=== PATIENT | male | born 1935 ===

== ENCOUNTER 2017-05-14 09:46 | Inpatient (IN) | payer MEDICARE ==
[2017-05-14] MEDS ORDERED: Midazolam 2 MG/2 ML VIAL ONE ×3 (10:27→14:05)
[2017-05-14] MEDS ORDERED: ePHEDrine 50 mg/ml Inj ONE (10:27)
[2017-05-14 10:51] LABS: BASO # 0.1 K/uL (0.0-0.2); BASO % 1.1 % (0.0-2.0); EOS # 0.6 K/uL (0.0-0.7); EOS % 12.9 % (0.0-4.0); HEMOGLOBIN 15.7 g/dL (12.0-18.0); LYMPH # 1.2 K/uL (1.0-4.3); LYMPH % 24.5 % (20.0-40.0); MEAN CELL VOLUME 96.4 fL (80.0-94.0); MEAN CORPUSCULAR HEMOGLOBIN 33.6 pg (27.0-31.0); MEAN CORPUSCULAR HGB CONC 34.9 g/dL (33.0-37.0); MEAN PLATELET VOLUME 8.4 fL (7.2-11.7); MONO # 0.3 K/uL (0.0-0.8); MONO % 6.7 % (0.0-10.0); NEUT # 2.6 K/uL (1.8-7.0); NEUT % 54.8 % (50.0-75.0); NRBC % 0.1 % (0.0-2.0); RBC 4.68 Mil/uL (4.40-5.90); RED CELL DISTRIBUTION WIDTH 13.6 % (11.5-14.5); WHITE BLOOD COUNT 4.8 K/uL (4.8-10.8)
[2017-05-14 10:54] LABS: BLOOD UREA NITROGEN 12 mg/dL (9-20); CALCIUM 9.1 mg/dl (8.6-10.4); GFR AFRICAN-AMERICAN > 60; GFR NON-AFRICAN AMERICAN > 60
[2017-05-14] MEDS ORDERED: Lidocaine 1% w Epi 1:100,000 Inj ONE (11:10)
[2017-05-14 11:11] LABS: INR 1.1; PROTHROMBIN TIME 12.3 SECONDS (9.7-12.2)
[2017-05-14] MEDS ORDERED: Iodixanol 320 MG/ML 100 ML BOTTLE IV ONE (12:59)
--- NOTE | 2017-05-14 14:36 | PCM.SURG1 ---
Surgeon's Initial Post Op Note - Surgeon's Notes Surgeon: shirley Spinner Cap Frame: 0 Type of Anesthesia: IV Sedation Anesthesia Administered By: michael Pre-Operative Diagnosis: rest pain right foot Operative Findings: occluded politeal artery on right with only peroneal runoff to foot. unable to visualize pedal vessels Post-Operative Diagnosis: same Operation Performed: aortofemoral angiogram. selective catherization of right femoral arery. balloon angioplasty and stent of distal sfa / popliteal. balloon angioplasty and stent(7mm) proximal sfa. balloon angioplasty (2mm) mid peroneal artery. perclose left groin Specimen/Specimens Removed: 0 Estimated Blood Loss: EBL {In ML}: 100 Blood Products Given: N/A Drains Used: No Drains Post-Op Condition: Good Date of Surgery/Procedure: 05/14/17 Time of Surgery/Procedure: 14:36
[2017-05-14] MEDS: Dextrose 5%/0.45% NS 1,000 ML IV SCH (15:14)
--- NOTE | 2017-05-14 18:44 | CP.PCM.CON ---
History of Present Illness - History of Present Illness History of Present Illness: Chief complaint: Peripheral vascular intervention Medical consultation History of present illness: 81-year-old male with a history of hypertension, history of COPD and ex-smoker admitted to the hospital with a severe peripherovascular disease. Patient today underwent aortofemoral angiogram, balloon angioplasty and stenting of the distal SFA and popliteal angioplasty of mid peroneal artery. Patient postoperatively in the [employer]. Patient is comfortable, he has no pain. Some discomfort in the urinary region noted, patient has a Dooley catheter. Minimal pain in the legs noted. Dopplerable pulse on both sides noted Past medical history: Hypertension possibly high cholesterol, COPD Allergies: No known drug allergic Personal history used to be a smoker heavily in the past. Does not have any drug history. Currently living with her family Surgical history includes a history of colectomy in the past for colon cancer. Bilateral hernia repair. Review of system: Denies any headache, no visual symptoms. Denies any chest pain or shortness of breath. Some pain in the legs noted, groin pain noted, but better. Difficulty in urination, right now having Dooley catheter On examination: Vital signs Pulse 82 blood pressure 150/90. Saturation is 98 Chest good air entry bilaterally Regular heart sound, nontender abdomen. Extremities no pedal edema Dopplerable pulses noted The access site in the left groin stable. Recent chest x-ray a few months ago showing no evidence of any acute infiltrate Assessment and recommendation: 81 male with history of hypertension COPD ex-smoker admitted with the peripherovascular disease. Patient underwent intervention including balloon angioplasty and stenting in the right SFA and the peroneal. Patient is currently stable. Accu-Chek monitoring labs ordered x-ray. Patient has a Dooley catheter, presumably tomorrow, Flomax and will follow the patient. Possibly patient has BPH. Past Patient History - Infectious Disease Hx of Infectious Diseases: None - Past Medical History & Family History Past Medical History?: Yes - Past Social History Smoking Status: Former Smoker - CARDIAC Hx Cardiac Disorders: Yes Hx Peripheral Vascular Disease: Yes - PULMONARY Hx Respiratory Disorders: No - NEUROLOGICAL Hx Neurological Disorder: No - HEENT Hx HEENT Problems: No - RENAL Hx Chronic Kidney Disease: No - ENDOCRINE/METABOLIC Hx Endocrine Disorders: No - HEMATOLOGICAL/ONCOLOGICAL Hx Blood Disorders: Yes Hx Anemia: Yes Hx Blood Transfusions: Yes Hx Blood Transfusion Reaction: No Hx Cancer: Yes (COLON) Hx Chemotherapy: Yes - INTEGUMENTARY Hx Dermatological Problems: No - MUSCULOSKELETAL/RHEUMATOLOGICAL Hx Musculoskeletal Disorders: Yes Hx Arthritis: Yes (GENERALIZED) Hx Falls: No Other/Comment: HX: BILATERAL INGUINAL HERNIA - GASTROINTESTINAL Hx Gastrointestinal Disorders: Yes Hx Bowel Surgery: Yes (COLON RESECTION) Other/Comment: HX: COLON CANCER - GENITOURINARY/GYNECOLOGICAL Hx Genitourinary Disorders: No - PSYCHIATRIC Hx Psychophysiologic Disorder: No Hx Substance Use: No - SURGICAL HISTORY Hx Surgeries: Yes Hx Herniorrhaphy: Yes (BILATERAL INGUINAL HERNIA REPAIR) Other/Comment: colon CA 30 years ago. - ANESTHESIA Hx Anesthesia: Yes Hx Anesthesia Reactions: No Hx Malignant Hyperthermia: No Meds Allergies/Adverse Reactions: Allergies Allergy/AdvReac Type Severity Reaction Status Date / Time No Known Allergies Allergy Verified 03/31/15 14:11 - Medications Medications: Current Medications Clopidogrel Bisulfate (Plavix) 75 mg PO DAILY [facility] Dextrose/Sodium Chloride (Dextrose 5%/0.45% Ns 1000 Ml) 1,000 mls @ 100 mls/hr IV .Q10H [facility] Last Admin: 05/14/17 15:14 Dose: 100 mls/hr Oxycodone/Acetaminophen (Percocet 5/325 Mg Tab) 1 tab PO Q4H PRN PRN Reason: Pain, moderate (4-7) Stop: 05/17/17 14:43 Tamsulosin HCl (Flomax) 0.4 mg PO Q12 [facility] Results - Labs Result Diagrams: 05/14/17 10:36 05/14/17 10:36 Labs: Laboratory Results - last 24 hr 05/14/17 05/14/17 05/14/17 10:36 10:36 10:36 WBC 4.8 RBC 4.68 Hgb 15.7 Hct 45.1 MCV 96.4 H D MCH 33.6 H MCHC 34.9 RDW 13.6 Plt Count 203 MPV 8.4 Neut % (Auto) 54.8 Lymph % (Auto) 24.5 [place] % (Auto) 6.7 Eos % (Auto) 12.9 H Baso % (Auto) 1.1 Neut # 2.6 Lymph # 1.2 [place] # 0.3 Eos # 0.6 Baso # 0.1 PT 12.3 H INR 1.1 APTT 34 Sodium 137 Potassium 4.0 Chloride 99 Carbon Dioxide 30 Anion Gap 11 BUN 12 Creatinine 0.8 Est GFR ( Amer) > 60 Est GFR (Non-Af Amer) > 60 Random Glucose 108 Calcium 9.1
[2017-05-14] MEDS ORDERED: Oxycodone/Acetaminophen 5/325 mg Tab ONE (18:59)
[2017-05-14] MEDS: Oxycodone/Acetaminophen 5/325 mg Tab PO PRN (19:00)
--- NOTE | 2017-05-14 20:51 | CARD ---
APPROVED REPORT EKG Measurement Heart [id number] <Conclusion> Normal sinus rhythm Left axis deviation Abnormal ECG
[2017-05-15] MEDS: Dextrose 5%/0.45% NS 1,000 ML IV SCH ×2 (00:32→10:53)
[2017-05-15] MEDS: Oxycodone/Acetaminophen 5/325 mg Tab PO PRN (02:40)
[2017-05-15 06:58] LABS: ALBUMIN 3.3 g/dL (3.5-5.0); ALT/SGPT 19 U/L (21-72); AST/SGOT 20 U/L (17-59); BLOOD UREA NITROGEN 11 mg/dL (9-20); CALCIUM 8.2 mg/dl (8.6-10.4); GFR AFRICAN-AMERICAN > 60; GFR NON-AFRICAN AMERICAN > 60; HDL CHOLESTEROL 38 mg/dL (30-70)
[2017-05-15 07:01] LABS: ALB/GLOB RATIO 1.2 (1.0-2.1)
[2017-05-15 07:09] LABS: LDL CHOLESTEROL 84 mg/dL (0-129)
[2017-05-15] MEDS ORDERED: Magnesium Hydroxide Susp 30 ml UD PO ONE (13:30)
--- NOTE | 2017-05-15 13:33 | CP.PCM.PN ---
Subjective - Date & Time of Evaluation Date of Evaluation: 05/15/17 Time of Evaluation: 13:32 - Subjective Subjective: good popliteal pulse leg hot difficulty putting charissa will hold dc due to discomfort plan dc am physical therapy Objective - Vital Signs/Intake and Output Vital Signs (last 24 hours): Temp Pulse Resp BP Pulse Ox 98.3 F 72 20 125/65 98 05/15/17 08:10 05/15/17 08:10 05/15/17 08:10 05/15/17 08:10 05/15/17 08:10 Intake and Output: 05/15/17 05/15/17 06:59 18:59 Output Total 1350 Balance -1350 - Medications Medications: Current Medications Clopidogrel Bisulfate (Plavix) 75 mg PO DAILY [facility] Last Admin: 05/15/17 10:22 Dose: 75 mg Gabapentin (Neurontin) 100 mg PO BID [facility] Last Admin: 05/15/17 11:41 Dose: 100 mg Dextrose/Sodium Chloride (Dextrose 5%/0.45% Ns 1000 Ml) 1,000 mls @ 100 mls/hr IV .Q10H [facility] Stop: 05/15/17 14:00 Last Admin: 05/15/17 10:53 Dose: 100 mls/hr Magnesium Hydroxide (Milk Of Magnesia) 30 ml PO ONCE ONE Stop: 05/15/17 13:31 Oxycodone/Acetaminophen (Percocet 5/325 Mg Tab) 1 tab PO Q4H PRN PRN Reason: Pain, moderate (4-7) Stop: 05/17/17 14:43 Last Admin: 05/15/17 02:40 Dose: 1 tab Rosuvastatin Calcium (Crestor) 2.5 mg PO HS [facility] Tamsulosin HCl (Flomax) 0.4 mg PO Q12 [facility] Last Admin: 05/15/17 10:22 Dose: 0.4 mg - Labs Labs: 05/14/17 10:36 05/15/17 06:25 PT 12.3 SECONDS (9.7-12.2) H 05/14/17 10:36 INR 1.1 05/14/17 10:36 APTT 34 SECONDS (21-34) 05/14/17 10:36
--- NOTE | 2017-05-15 14:13 | VAS ---
DATE: 05/14/2017 PREOPERATIVE DIAGNOSIS: Rest pain, right foot. PROCEDURE CARRIED OUT: Aortofemoral angiogram via left groin with selective catheterization of right femoral artery and then balloon angioplasty and stent deployment of the right superficial femoral artery, both in the distal and proximal portions, and balloon angioplasty with stent deployment of those vessels and then balloon angioplasty of the peroneal artery. SURGEON: Parish Maguire Jr., MD. PAYABLE MANAGER: None. ANESTHESIOLOGIST: , INTELLIGENCE OFFICER BASIC. INDICATIONS: The patient is an 82-year-old man with rest pain in the right foot. OPERATIVE FINDINGS: The aorta and renal arteries were free of significant occlusive disease. Both external iliac, common iliac, internal iliac arteries, common femoral arteries and the proximal portion of the both superficial femoral arteries were widely patent. On the left side, the superficial femoral artery was widely patent except for some stenosis of approximately 50% in its proximal segment down to the level of the distal popliteal artery. Below this, there appeared to be one vessel runoff to the foot via the peroneal artery. Additional films were not obtained on the left side. On the right side, there was an occlusion of the distal superficial femoral artery, and that a complete occlusion of the popliteal artery was reconstituted just proximal to the takeoff of the anterior tibial and peroneal and posterior tibial which were occluded. The peroneal artery was the major vessel into the left foot. Despite multiple attempts, we were unable to obtain adequate views of the foot vessels. In addition, there was approximately 60% to 70% stenosis of the origin of the superficial femoral artery on the right side. Subsequent to the performance of diagnostic arteriogram, a stiff-angled guidewire was advanced to the aortic bifurcation and a 7-Romanian sheath positioned in the distal portion of superficial femoral artery. Eventually, we then positioned it distally. We went through the proximal area at the origin, and we were then able to, using road mapping techniques, cross this into the peroneal artery. We carried out, using a 2 mm balloon, a balloon angioplasty of the midportion of the peroneal artery and heparin had been given prior to doing this. We then carried out multiple balloon angioplasties. We did not carry out atherectomy because of concern regarding the possibility of a subintimal dissection. Nonetheless, at this point, we then had dissected down here. We ballooned the peroneal artery. We deployed a Supera 5.5 stent from the knee joint back. We then at the very top portion of it, deployed a Zilver stent as it did not adequately cover the proximal area. We then went to the proximal portion of the superficial femoral artery and deployed a 7 x 60 Innova stent. After we had done this, we then obtained final films which showed a residual area of dissection in the midportion of the popliteal artery which required deployment of a 4 mm balloon and then another Innova stent 5 mm in diameter. The final completion pictures were excellent showing no residual stenosis or dissection, brisk flow into the peroneal artery. Procedure was terminated. Perclose was applied in the left groin. Blood loss for procedure was approximately 100 mL. So again operation, aortofemoral angiogram with selective catheterization of right femoral artery, balloon angioplasty and stent deployment of the popliteal artery and also separately of the proximal superficial femoral artery, balloon angioplasty using a 2 mm balloon of the peroneal artery. Parish Maguire Jr., MD cc: Isaiah Arroyo DPM
[2017-05-15] MEDS ORDERED: Rosuvastatin Calcium 2.5 mg Tab PO SCH (22:00)
--- NOTE | 2017-05-15 22:29 | CP.PCM.PN ---
Subjective - Date & Time of Evaluation Date of Evaluation: 05/15/17 Time of Evaluation: 22:28 - Subjective Subjective: Patient is morning doing well. Eating well. His coming of some pain in the legs. Blood sugar is normal. Labs reviewed. Vital signs stable. Chest good and bilaterally regular heart sound nontender abdomen. Pedal edema negative. Dopplerable pulse noted in the legs. Labs reviewed. Assessment and admission: 81-year-old male with history of COPD, hypertension, admitted with peripheral vascular disease. Currently stable. On antiplatelets. Possible discharge plan in the morning discussed with the surgery Objective - Vital Signs/Intake and Output Vital Signs (last 24 hours): Temp Pulse Resp BP Pulse Ox 97.5 F L 69 20 165/80 H 98 05/15/17 16:48 05/15/17 16:48 05/15/17 16:48 05/15/17 16:48 05/15/17 16:48 - Medications Medications: Current Medications Clopidogrel Bisulfate (Plavix) 75 mg PO DAILY [facility] Last Admin: 05/15/17 10:22 Dose: 75 mg Gabapentin (Neurontin) 100 mg PO BID [facility] Last Admin: 05/15/17 17:49 Dose: 100 mg Oxycodone/Acetaminophen (Percocet 5/325 Mg Tab) 1 tab PO Q4H PRN PRN Reason: Pain, moderate (4-7) Stop: 05/17/17 14:43 Last Admin: 05/15/17 02:40 Dose: 1 tab Rosuvastatin Calcium (Crestor) 2.5 mg PO HS [facility] Last Admin: 05/15/17 22:11 Dose: 2.5 mg Tamsulosin HCl (Flomax) 0.4 mg PO Q12 [facility] Last Admin: 05/15/17 22:11 Dose: 0.4 mg - Labs Labs: 05/14/17 10:36 05/15/17 06:25 PT 12.3 SECONDS (9.7-12.2) H 05/14/17 10:36 INR 1.1 05/14/17 10:36 APTT 34 SECONDS (21-34) 05/14/17 10:36
--- NOTE | 2017-05-16 07:53 | CP.PCM.DIS ---
Provider - Provider Date of Admission: 05/14/17 16:26 Attending physician: Parish Maguire Jr, MD Time Spent in preparation of Discharge (in minutes): 35 Diagnosis - Discharge Diagnosis (1) Peripheral arterial disease Status: Chronic Hospital Course - Lab Results Lab Results: Most Recent Lab Values WBC 4.8 K/uL (4.8-10.8) 05/14/17 10:36 RBC 4.68 Mil/uL (4.40-5.90) 05/14/17 10:36 Hgb 15.7 g/dL (12.0-18.0) 05/14/17 10:36 Hct 45.1 % (35.0-51.0) 05/14/17 10:36 MCV 96.4 fL (80.0-94.0) H D 05/14/17 10:36 MCH 33.6 pg (27.0-31.0) H 05/14/17 10:36 MCHC 34.9 g/dL (33.0-37.0) 05/14/17 10:36 RDW 13.6 % (11.5-14.5) 05/14/17 10:36 Plt Count 203 K/uL (130-400) 05/14/17 10:36 MPV 8.4 fL (7.2-11.7) 05/14/17 10:36 Neut % (Auto) 54.8 % (50.0-75.0) 05/14/17 10:36 Lymph % (Auto) 24.5 % (20.0-40.0) 05/14/17 10:36 [place] % (Auto) 6.7 % (0.0-10.0) 05/14/17 10:36 Eos % (Auto) 12.9 % (0.0-4.0) H 05/14/17 10:36 Baso % (Auto) 1.1 % (0.0-2.0) 05/14/17 10:36 Neut # 2.6 K/uL (1.8-7.0) 05/14/17 10:36 Lymph # 1.2 K/uL (1.0-4.3) 05/14/17 10:36 [place] # 0.3 K/uL (0.0-0.8) 05/14/17 10:36 Eos # 0.6 K/uL (0.0-0.7) 05/14/17 10:36 Baso # 0.1 K/uL (0.0-0.2) 05/14/17 10:36 PT 12.3 SECONDS (9.7-12.2) H 05/14/17 10:36 INR 1.1 05/14/17 10:36 APTT 34 SECONDS (21-34) 05/14/17 10:36 Sodium 133 mmol/L (132-148) 05/15/17 06:25 Potassium 3.7 mmol/L (3.6-5.2) 05/15/17 06:25 Chloride 101 mmol/L (98-107) 05/15/17 06:25 Carbon Dioxide 26 mmol/L (22-30) 05/15/17 06:25 Anion Gap 9 (10-20) L 05/15/17 06:25 BUN 11 mg/dL (9-20) 05/15/17 06:25 Creatinine 0.9 mg/dL (0.8-1.5) 05/15/17 06:25 Est GFR ( Amer) > 60 05/15/17 06:25 Est GFR (Non-Af Amer) > 60 05/15/17 06:25 POC Glucose (mg/dL) 108 mg/dL (65-110) 05/16/17 06:34 Random Glucose 111 mg/dL (75-110) H 05/15/17 06:25 Hemoglobin A1c 5.6 % (4.2-6.5) 05/15/17 06:25 Calcium 8.2 mg/dl (8.6-10.4) L 05/15/17 06:25 Total Bilirubin 0.9 mg/dL (0.2-1.3) 05/15/17 06:25 AST 20 U/L (17-59) 05/15/17 06:25 ALT 19 U/L (21-72) L D 05/15/17 06:25 Alkaline Phosphatase 52 U/L (38-126) 05/15/17 06:25 Total Protein 6.1 g/dL (6.3-8.3) L 05/15/17 06:25 Albumin 3.3 g/dL (3.5-5.0) L D 05/15/17 06:25 Globulin 2.8 gm/dL (2.2-3.9) 05/15/17 06:25 Albumin/Globulin Ratio 1.2 (1.0-2.1) 05/15/17 06:25 Triglycerides 94 mg/dL (0-149) 05/15/17 06:25 Cholesterol 152 mg/dL (0-199) 05/15/17 06:25 LDL Cholesterol Direct 84 mg/dL (0-129) 05/15/17 06:25 HDL Cholesterol 38 mg/dL (30-70) 05/15/17 06:25 TSH 3rd Generation 2.00 mIU/L (0.46-4.68) 05/15/17 06:25 - Hospital Course Hospital Course: 05/14/17 patient was admitted as a same day surgery patient for resting foot pain. He had endovascular aortofemoral angiogram. selective catherization of right femoral arery. balloon angioplasty and stent of distal sfa / popliteal. balloon angioplasty and stent(7mm) proximal sfa. balloon angioplasty (2mm) mid peroneal artery. perclose left groin under Iv sedation. He tolerated the proceedure well however complained of groin pain. Today he is feeling better and is stable for discharge home. - Date & Time of H&P Date of H&P: 05/16/17 Time of H&P: 07:53 Discharge Exam - Head Exam Head Exam: ATRAUMATIC, NORMOCEPHALIC - Eye Exam Eye Exam: EOMI, Normal appearance - Respiratory Exam Respiratory Exam: NORMAL BREATHING PATTERN - Cardiovascular Exam Cardiovascular Exam: REGULAR RHYTHM - GI/Abdominal Exam GI & Abdominal Exam: Normal Bowel Sounds - Neurological Exam Neurological exam: Alert - Psychiatric Exam Psychiatric exam: Normal Affect, Normal Mood - Skin Skin Exam: Dry, Intact Discharge Plan - Follow Up Plan Condition: GOOD Disposition: HOME/ ROUTINE Patient education suggested?: Yes Instructions: Peripheral Vascular Angioplasty (DC) Additional Instructions: If you develop fevers chills or new or concerning symptoms please call you primary care physcian or go to the ED.
[2017-05-16 08:08] VITALS: O2SAT 98
[2017-05-16] MEDS: Oxycodone/Acetaminophen 5/325 mg Tab PO PRN (09:12)
--- NOTE | 2017-05-16 13:03 | CP.PCM.PN ---
Subjective - Date & Time of Evaluation Date of Evaluation: 05/16/17 Time of Evaluation: 13:03 - Subjective Subjective: fu office 1 week f you develop fevers chills or new or concerning symptoms please call you primary care physcian or go to the ED. please call 's office for appointment to see him in his office a week after living the hospital. FOLLOW UP WITH DR NEUMANN IN [place] OFFICE 1-2 WEEK ---CALL FOR APPOINTMENT CONTINUE ALL YOUR HOME MEDICATION NEW PRESCRIPTION GIVEN: PLAVIX 75 MG BY MOUTH DAILY NORVASC 5 MG BY MOUTH DAILY FLOMAX 0.4 MG BY MOUTH DAILY CALL DR NEUMANN OR GO TO THE EMERGENCY ROOM IF SYMPTOMS RETURN OR WORSENING Objective - Vital Signs/Intake and Output Vital Signs (last 24 hours): Temp Pulse Resp BP Pulse Ox 97.1 F L 71 18 127/68 98 05/16/17 07:10 05/16/17 07:40 05/16/17 07:10 05/16/17 07:10 05/16/17 07:10 Intake and Output: 05/16/17 05/16/17 06:59 18:59 Intake Total 600 Output Total 300 Balance 300 - Medications Medications: Current Medications Clopidogrel Bisulfate (Plavix) 75 mg PO DAILY [facility] Last Admin: 05/16/17 09:12 Dose: 75 mg Gabapentin (Neurontin) 100 mg PO BID [facility] Last Admin: 05/16/17 09:12 Dose: 100 mg Oxycodone/Acetaminophen (Percocet 5/325 Mg Tab) 1 tab PO Q4H PRN PRN Reason: Pain, moderate (4-7) Stop: 05/17/17 14:43 Last Admin: 05/16/17 09:12 Dose: 1 tab Rosuvastatin Calcium (Crestor) 2.5 mg PO HS [facility] Last Admin: 05/15/17 22:11 Dose: 2.5 mg Tamsulosin HCl (Flomax) 0.4 mg PO Q12 [facility] Last Admin: 05/16/17 09:12 Dose: 0.4 mg - Labs Labs: 05/14/17 10:36 05/15/17 06:25 PT 12.3 SECONDS (9.7-12.2) H 05/14/17 10:36 INR 1.1 05/14/17 10:36 APTT 34 SECONDS (21-34) 05/14/17 10:36
[2017-05-16 15:49] VITALS: BP 147/75; PULSE 87; RESP 20; TEMP 98
== END 2017-05-16 16:27 | disposition home or self-care (01) | DRG 254 ==
LOC: C.SDS 09:46 → C.9S 16:26 → C.6T 20:07
PROVIDERS: ADMIT Surgery Vascular Surgery; ATTEND Surgery Vascular Surgery
PROC: 047K36Z Dilation of Right Femoral Artery with Three Drug-eluting Intraluminal Devices, Percutaneous Approach (ICD-10-PCS; principal; 2017-05-14)
PROC: 047M34Z Dilation of Right Popliteal Artery with Drug-eluting Intraluminal Device, Percutaneous Approach (ICD-10-PCS; 2017-05-14)
PROC: B40DYZZ Plain Radiography of Aorta and Bilateral Lower Extremity Arteries using Other Contrast (ICD-10-PCS; 2017-05-14)
DX: I70.221 Atherosclerosis of native arteries of extremities with rest pain, right leg (principal); J44.9 Chronic obstructive pulmonary disease, unspecified; I10 Essential (primary) hypertension; N40.0 Benign prostatic hyperplasia without lower urinary tract symptoms; Z79.899 Other long term (current) drug therapy; Z87.891 Personal history of nicotine dependence; Z85.038 Personal history of other malignant neoplasm of large intestine